=== PATIENT | female | born 1990 | race Caucasian/White ===

== ENCOUNTER 2021-11-22 11:37 | Emergency (ER) | payer BC, MEDICAID, SELFPAY ==
[2021-11-22 12:04] VITALS: BP 126/74; PULSE 105; RESP 18; TEMP 37.2; O2SAT 99; BMI 39.9
--- NOTE | 2021-11-22 13:18 | ED.GENADULT ---
HPI - General Adult General Time Seen by Provider: 13:19 Date Seen: 11/22/21 Chief complaint: Vaginal Bleeding Stated complaint: 6 1/2 weeks , bleeding Time Seen by Provider: 11/22/21 12:42 Source: patient and RN notes reviewed Mode of arrival: ambulatory Limitations: no limitations History of Present Illness HPI narrative: Patient is coming in with vaginal bleeding she is a little over 6 weeks by a dates. This morning she started spotting with wiping. She is not bleeding profusely the point that she is having any drainage and/or underwear. She did just go to the bathroom again on arrival and had a little bright red with wiping. She is having no pain, no abdominal pain, no cramping. This is her 3rd . She was told she had a subchorionic hemorrhage based on ultrasound with her 1st but never did have any bleeding. She has never had to have RhoGAM injection. She had her last baby here at [facility]. Related Data Home Medications Medication Instructions Recorded Confirmed escitalopram oxalate 20 mg tablet mg 11/22/21 Allergies Allergy/AdvReac Type Severity Reaction Status Date / Time ibuprofen Allergy Verified 11/22/21 12:07 Review of Systems Status of ROS: Reports: 6 or more systems reviewed and unremarkable except as noted in History and below Exam Const: Vital Signs, click to edit/add: Vital Signs - 24 hr 11/22/21 12:04 Temperature 98.9 F Pulse Rate [Right Pulse Oximeter] 105 H Respiratory Rate 18 Blood Pressure [Ri ght Upper Arm] 126/74 Pulse Oximetry 99 Oxygen Delivery Me thod Room Air Documenting provider has reviewed patient's vital signs: yes Common normals: no apparent distress, oriented x3, no limitations, healthy appearing, alert and well nourished General appearance: cooperative, comfortable and well kempt Nutritional appearance: obese HENMT: Common normals: normocephalic, head/scalp atraumatic and external ears normal Head and scalp: normocephalic and atraumatic External ear: external ears normal Eye: Common normals: PERRL, EOMs intact bilaterally, conjunctivae normal and no scleral icterus Conjunctiva: conjunctiva(e) normal Pupil: PERRL Neck & C-Spine: Common normals: full ROM, no lymphadenopathy, supple, no meningeal signs, no JVD and thyroid normal Thyroid: thyroid normal Resp: Common normals: normal respiratory effort, no retractions, no use of accessory muscles and clear to auscultation bilaterally Auscultation: clear to auscultation bilaterally Cardio: Common normals: no JVD, regular rate, regular rhythm, S1 normal heart sound, S2 normal heart sound, no gallops, no clicks and no murmurs Rate: regular rate Rhythm: regular rhythm Heart sounds: S1 normal and S2 normal GI: Common normals: Normal to inspection, nondistended, normoactive bowel sounds present, soft to palpation, non-tender, no hepatosplenomegaly, no masses and no bruits Palpation: soft and no hepatosplenomegaly Neuro: Common normals: oriented x3 Sensorium/orientation: alert Meningeal signs: no meningeal signs Psych: Appearance: well kempt Course Course Hospital Course: Reviewed causes of first-trimester bleeding with patient. She is not having any pelvic or abdominal pain, thus hopeful that this does not represent any ectopic . We will confirm her blood type, make sure she is not a candidate for RhoGAM, obtain of limited ultrasound as well as HCG/hemoglobin levels. She is currently hemodynamically stable, no evidence of any bleeding that require any emergent or surgical intervention. She will be monitored while here. Reevaluation(s) Reevaluation #1: Have reviewed the normal ultrasound findings, B positive blood type, stable hemoglobin and good level of hCG. She will need follow up in clinic. She is sure that this is vaginal. She states when they withdrew the Wand from the ultrasound there was some blood on it. She is not bleeding heavier. We recommended a period of observation and follow up with OB. Time: 15:44 Vital Signs Vital signs: Initial Vital Signs Temperature 98.9 F 11/22/21 12:04 Temperature Source Temporal Artery Scan 11/22/21 12:04 Pulse Rate 105 H 11/22/21 12:04 Respiratory Rate 18 11/22/21 12:04 Blood Pressure 126/74 11/22/21 12:04 Blood Pressure Mean 91 11/22/21 12:04 Blood Pressure Position Sitting 11/22/21 12:04 Pulse Oximetry 99 11/22/21 12:04 Oxygen Delivery Method 11/22/21 12:04 Vital Signs Temperature 98.9 F 11/22/21 12:04 Pulse Rate 105 H 11/22/21 12:04 Respiratory Rate 18 11/22/21 12:04 Blood Pressure 126/74 11/22/21 12:04 Pulse Oximetry 99 11/22/21 12:04 Oxygen Delivery Method 11/22/21 12:04 Temperature 98.9 F 11/22/21 12:04 Pulse Rate 105 H 11/22/21 12:04 Respiratory Rate 18 11/22/21 12:04 Blood Pressure 126/74 11/22/21 12:04 Pulse Oximetry 99 11/22/21 12:04 Oxygen Delivery Method 11/22/21 12:04 Medical Decision Making Lab Data Lab results reviewed: Yes I reviewed the patient's lab results Labs: Lab Results 11/22/21 11/22/21 11/22/21 Range/Units 13:40 13:40 13:40 WBC 5.42 (4.50-11.00) K/uL RBC 4.73 (4.00-5.20) m/uL Hgb 14.6 (12.0-16.0) gm/dL Hct 42.2 (33.0-51.0) % MCV 89 (80-100) fL MCH 31 (26-34) pg MCHC 35 (32-36) gm/dL RDW Coeff of Mick 12.5 (11.5-15.5) % Plt Count 256 (140-440) K/uL Neut % (Auto) 66.9 (42.0-72.0) % Lymph % (Auto) 24.4 (20-44) % [place]on % (Auto) 7.2 (0.0-11.0) % Eos % (Auto) 0.9 (0.0-7.0) % Baso % (Auto) 0.4 (0.0-3.0) % Neut # (Auto) 3.63 (1.7-7.0) K/uL Lymph # (Auto) 1.32 (0.90-2.90) K/uL [place]on # (Auto) 0.40 (0.00-0.90) K/UL Eos # (Auto) 0.05 (0.00-0.50) K/uL Baso # (Auto) 0.02 (0.00-0.30) K/uL Abs Immat Gran (auto) 0.01 (0.00-0.30) K/uL HCG, Quant 1748.70 mIU/mL Blood Type B Positive Imaging Data US - abdomen: Attestation: I have reviewed the pertinent imaging results. Radiologist's impression: Patient: FRANCISCO HASSAN Facility:?[facility] Patient ID:?[id number] Site Patient ID:?[id number]. Site :?1990 Study:?US OB Pelvis -11/22/2021 2:41:28 PM Ordering Physician:Te Young Final Report: Indication: Vaginal bleeding in the setting of an early 1st trimester . Technique: Sonography the pelvis was performed. The study was performed transabdominally and transvaginally. Doppler was also performed to assess heart rate Comparison: There are no prior studies this available for comparison. Findings: There is a single live intrauterine . The crown-rump length measures 5 millimeters corresponding to 6 weeks and 2 days. The estimated date of delivery based on this measurement is 07/16/2022. heart rate is 118 beats per minute which is normal for this early gestational age. The gestational sac size averages 7 millimeters. A yolk sac is difficult to ascertain. The ovaries are not discretely visualized due to bowel gas. A vague cystic structure in the left adnexa measuring 1.2 centimeters is probably an ovarian or a paraovarian cyst. No free fluid. No significant free fluid Impression: Single living intrauterine at 6 weeks and 2 days with an estimated date of delivery of 07/16/2022. No subchorionic hemorrhage or other visible complication. Dictated by Lewis Burton MD @ 11/22/2021 2:54:40 PM (Electronic Signature) Critical Care Time Critical Care Time Critical Care Time: No Discharge Plan Discharge Clinical Impression: First trimester bleeding Patient Disposition: Home, Self-Care Condition: Stable Instructions: Threatened Miscarriage (ED) Additional Instructions: Need to schedule a followup in Ob Gyne within the next 3 days if possible. Subsequent hCG level needs to be done hopefully in 48-72 hours. Complete pelvic rest until further evaluation done at your follow-up. If bleeding does increase with bleeding through a maxi pad an hour for 2 consecutive hours, bleeding heavy enough that you are becoming symptomatic feeling of lightheaded, dizzy, short of breath, elevated heart rate, do need to seek re-evaluation in the interim. Prescriptions: No Action escitalopram oxalate 20 mg tablet Label Comments: TAKE 1 TABLET BY MOUTH DAILY Stand Alone Forms: [employer] Info Instructions
--- NOTE | 2021-11-22 13:22 | CRLHL7_ITS ---
For Patients: As a result of the Cures Act, medical imaging exams and procedure reports are released immediately into your electronic medical record. You may view this report before your referring provider. If you have questions, please contact your health care provider. Indication: Vaginal bleeding in the setting of an early 1st trimester . Technique: Sonography the pelvis was performed. The study was performed transabdominally and transvaginally. Doppler was also performed to assess heart rate Comparison: There are no prior studies this available for comparison. Findings: There is a single live intrauterine . The crown-rump length measures 5 millimeters corresponding to 6 weeks and 2 days. The estimated date of delivery based on this measurement is 07/16/2022. heart rate is 118 beats per minute which is normal for this early gestational age. The gestational sac size averages 7 millimeters. A yolk sac is difficult to ascertain. The ovaries are not discretely visualized due to bowel gas. A vague cystic structure in the left adnexa measuring 1.2 centimeters is probably an ovarian or a paraovarian cyst. No free fluid. No significant free fluid Impression: Single living intrauterine at 6 weeks and 2 days with an estimated date of delivery of 07/16/2022. No subchorionic hemorrhage or other visible complication. Dictated by Lewis Burton MD @ 11/22/2021 2:54:40 PM (Electronically Signed)
[2021-11-22 13:53] LABS: Basophils Absolute Auto 0.02 K/uL (0.00-0.30); Basophils Percent Auto 0.4 % (0.0-3.0); Eosinophils Absolute Auto 0.05 K/uL (0.00-0.50); Eosinophils Percent Auto 0.9 % (0.0-7.0); Hematocrit 42.2 % (33.0-51.0); Hemoglobin* 14.6 gm/dL (12.0-16.0); Immature Granulocytes Abs Auto 0.01 K/uL (0.00-0.30); Lymphocytes Absolute Auto 1.32 K/uL (0.90-2.90); Lymphocytes Percent Auto 24.4 % (20-44); Mean Corpuscular HGB Conc 35 gm/dL (32-36); Mean Corpuscular Hemoglobin 31 pg (26-34); Mean Corpuscular Volume 89 fL (80-100); Monocytes Percent Auto 7.2 % (0.0-11.0); Neutrophils Absolute Auto 3.63 K/uL (1.7-7.0); Neutrophils Percent Auto 66.9 % (42.0-72.0); Platelet Count* 256 K/uL (140-440); RDW Coefficient of Variation % 12.5 % (11.5-15.5); Red Blood Count 4.73 m/uL (4.00-5.20); White Blood Count* 5.42 K/uL (4.50-11.00)
[2021-11-22 14:06] LABS: Slide Review Reflex No
== END 2021-11-22 16:05 | disposition home or self-care (01) ==
PROVIDERS: Emergency Provider Family Medicine
DX: O26.851 Spotting complicating pregnancy, first trimester (principal); Z3A.01 Less than 8 weeks gestation of pregnancy
CPT/HCPCS: 36415; 76817; 84702; 85025; 86900; 86901; 99284

== ENCOUNTER 2021-11-25 09:07 | Outpatient (CLI) | payer BC, MEDICAID, SELFPAY ==
[2021-11-25 14:04] LABS: HCG Quantitative* 219.77 mIU/mL
== END 2021-11-25 09:08 | disposition home or self-care (01) ==
LOC: NFLDREF 10:12
PROVIDERS: Visit Provider Obstetrics & Gynecology
DX: O20.9 Hemorrhage in early pregnancy, unspecified (principal)
CPT/HCPCS: 84702

== ENCOUNTER 2021-12-02 16:17 | Outpatient (CLI) | payer BC, SELFPAY ==
[2021-12-02 12:36] LABS: HCG Quantitative* 11.38 mIU/mL
== END 2021-12-02 16:18 | disposition home or self-care (01) ==
PROVIDERS: Visit Provider Advanced Practice Midwife
DX: O03.9 Complete or unspecified spontaneous abortion without complication (principal)
CPT/HCPCS: 84702

== ENCOUNTER 2021-12-10 08:40 | Outpatient (CLI) | payer BC, SELFPAY ==
--- OUTSIDE RECORDS SUMMARY | 2021-12-10 14:04 | XMS_ITS | Clinical Summary ---
:1990 Author Organization [employer] [facility] [place] [address] Care Team Providers Name Role Phone Pcp, No Primary Care Provider Unavailable Allergies Active Allergy Reactions Severity Noted Date Comments Ibuprofen Nausea And Vomiting 07/30/2014 Medications Medication Sig Dispensed Refills Start Date End Date Status VIT Take 1 Tab by 0 Act dat W-CA,FE,FA,<1 MG, mouth once daily. ( VITAMIN ORAL) pediatric multivit Take 1 tablet by 0 Active comb no.42 (CHILD'S mouth once daily. GUMMY VITAMIN-MINERAL) chew Active Problems Problem Noted Date Supervision of normal first 07/29/2014 Obesity (BMI 30-39.9) 07/29/2014 (normal spontaneous vaginal delivery) 07/29/2014 Second degree perineal laceration during delivery 07/11 Social History Tobacco Use Types Packs/Day Years Used Date Former Smoker Smokeless Tobacco: Never Used Alcohol Use Standard Drinks/Week Comments No 0 (1 standard drink = 0.6 oz pure alcoho l) Sex Assigned at Date Recorded Not on file Obstetrics History Para Term AB IAB SAB Ectopic Multiple Living Live Births 1 1 1 1 1 Date Outcome GA Total Labor/2nd/3rd Weight Sex Delivery Anes PTL Maria G A 1 A5 Name Clin Labor 07/29 Term 37w 3.18 kg M Vag Eli 9 9 3d (7 lb) ng LL,BB (ALFREDO ICA) Delivery Location: [facility] Last Filed Vital Signs Vital Sign Reading Time Taken Comments Blood Pressure 110/64 09/30/2015 4:20 PM CDT Pulse 116 09/30/2015 4:20 PM CDT Temperature 37.2 ??C (98.9 ??F) 09/30/2015 4:20 PM CDT Respiratory Rate 16 07/31/2014 9:00 AM CDT Oxygen Saturation 98% 09/30/2015 4:20 PM CDT Inhaled Oxygen Concentration - - Weight 112 kg (247 lb) 09/30/2015 4:20 PM CDT Height 168.9 cm (5' 6.5) 04/15/2015 4:11 PM INSPECTOR PRECISION ASSEMBLY Body Mass Index 39.27 04/15/2015 4:11 PM INSPECTOR PRECISION ASSEMBLY Plan of Treatment Health Maintenance Due Date Last Done Comments COVID-19 vaccine series (#1) 1990 Tdap 2001 Depression screening for age 12+ 2002 Hepatitis C screening for age 18-79 2008 Tetanus booster 2010 BMI (ht and wt on same day) for age 18+ 04/15/2016 04/15/19 16 Pap test for age 21-65 06/05/2021 06/05/2018 Influenza for age 9-49 11/11/2021 Results Not on filefrom Last 3 Months Insurance Payer Benefit Plan / Subscriber ID Effective Dates Phone Addre ss Type Group [employer] [id number] 2014-Present [address] [place] [address] Advance Directives Latest Code Status on File Code Status Date Activated Date Inactivated Comments Full Code 07/29/2014 11:20 PM 07/31/2014 2:18 PM Full Code 07/29/2014 7:31 AM 07/29/2014 11:20 PM Full Code 07/29/2014 7:30 AM 07/29/2014 7:31 AM Full Code 07/29/2014 7:11 AM 07/29/2014 7:25 AM Full Code 07/29/2014 6:25 AM 07/29/2014 7:11 AM Care Teams Wood Turning Lathe Operator Relationship Specialty Start Date End Date Pcp, No PCP - General 07/29/14 .
[2021-12-10 15:14] LABS: HCG Quantitative* < 2.39 mIU/mL
== END 2021-12-10 08:41 | disposition home or self-care (01) ==
LOC: NFLDREF 13:35
PROVIDERS: Visit Provider Advanced Practice Midwife
DX: O03.9 Complete or unspecified spontaneous abortion without complication (principal)
CPT/HCPCS: 84702

== ENCOUNTER 2022-01-31 07:56 | Outpatient (CLI) | payer BC, SELFPAY ==
--- OUTSIDE RECORDS SUMMARY | 2022-01-31 08:00 | XMS_ITS | Clinical Summary ---
:1990 Author Organization [employer] [facility] [place] [address] Care Team Providers Name Role Phone Pcp, [...] lb) ng LL,BB (ALFREDO ICA) Delivery Location: [facility] Last Filed Vital Signs Vital Sign [...] 168.9 cm (5' 6.5) 04/15/2015 4:11 PM SALES SUPPORT COORDINATOR Body Mass Index 39.27 04/15/2015 4:11 PM SALES SUPPORT COORDINATOR Plan of Treatment Health Maintenance Due Date [...] Phone Addre ss Type Group [employer] [id number] 2014-Present [address] [place] [address] Advance Directives Latest Code Status on File Code Status Date Activated Date Inactivated Comments Full Code 07/29/2014 11:20 PM 07/31/2014 2:18 PM Full Code 07/29/2014 7:31 AM 07/29/2014 11:20 PM Full Code 07/29/2014 7:30 AM 07/29/2014 7:31 AM Full Code 07/29/2014 7:11 AM 07/29/2014 7:25 AM Full Code 07/29/2014 6:25 AM 07/29/2014 7:11 AM Care Teams Experimental Outboard Motors Mechanic Relationship Specialty Start Date End Date Pcp, No PCP - General 07/29/14 .
--- NOTE | 2022-01-31 08:15 | CRLHL7_ITS ---
For Patients: As a result of the Century Cures Act, medical imaging exams and procedure reports are released immediately into your electronic medical record. You may view this report before your referring provider. If you have questions, please contact your health care provider. INDICATION: First trimester scan, establish dates. COMPARISON: None. TECHNIQUE: Real-time anne-scale imaging of the pelvis was performed. FINDINGS: Sonographic imaging demonstrates a twin dichorionic/diamniotic living intrauterine gestation. TWIN A: The embryo demonstrates a regular cardiac rate measuring 174 beats per minute. The embryo`s crown-rump length measurement of 2.2 cm corresponds to a gestational age of 8 weeks 6 days with a sonographic due date of 09/06/2022. There is a normal-appearing yolk sac. There are no gross abnormalities noted within the embryo at this early state of development. The gestational sac has a normal appearance. The amount of fluid within the sac appears appropriate for gestational age. TWIN B: The embryo demonstrates a regular cardiac rate measuring 176 beats per minute. The embryo`s crown-rump length measurement of 2.7 cm corresponds to a gestational age of 9 weeks 3 days with a sonographic due date of 09/02/2022. There is a normal-appearing yolk sac. There are no gross abnormalities noted within the embryo at this early state of development. The gestational sac has a normal appearance. The amount of fluid within the sac appears appropriate for gestational age. The cervix is closed. The myometrium appears normal. The left ovary is normal. The right ovary is not visualized. A small subchorionic hemorrhage is present inferiorly measuring 7 x 6 x 18 millimeters. There are no suspicious fluid collections noted in the cul-de-sac. IMPRESSION: TWIN A: Gestational age calculated at 8 weeks 6 days with a sonographic due date of 09/06/2022. TWIN B: Gestational age calculated at 9 weeks 3 days with a sonographic due date of 09/02/2022. Dictated by Michel Ospina MD @ 01/31/2022 11:06:52 AM (Electronically Signed)
== END 2022-01-31 07:57 | disposition home or self-care (01) ==
LOC: US 07:59
PROVIDERS: PCP Family Medicine; Visit Provider Advanced Practice Midwife
DX: O30.041 Twin pregnancy, dichorionic/diamniotic, first trimester (principal); Z3A.09 9 weeks gestation of pregnancy
CPT/HCPCS: 76817; 84443; 86703; 86803; 86850; 86900; 86901; 87086; 87340

== ENCOUNTER 2022-01-31 09:21 | Outpatient (CLI) | payer BC, SELFPAY ==
--- OUTSIDE RECORDS SUMMARY | 2022-01-31 09:26 | XMS_ITS | Clinical Summary ---
:1990 Author Organization [employer] [facility] [place] [address] Care Team Providers Name Role Phone Pcp, [...] lb) ng LL,BB (ALFREDO ICA) Delivery Location: [facility] Last Filed Vital Signs Vital Sign [...] 168.9 cm (5' 6.5) 04/15/2015 4:11 PM TELEMARKETING SALES REPRESENTATIVE Body Mass Index 39.27 04/15/2015 4:11 PM TELEMARKETING SALES REPRESENTATIVE Plan of Treatment Health Maintenance Due Date [...] Phone Addre ss Type Group [employer] [id number] 2014-Present [address] [place] [address] Advance Directives Latest Code Status on File Code Status Date Activated Date Inactivated Comments Full Code 07/29/2014 11:20 PM 07/31/2014 2:18 PM Full Code 07/29/2014 7:31 AM 07/29/2014 11:20 PM Full Code 07/29/2014 7:30 AM 07/29/2014 7:31 AM Full Code 07/29/2014 7:11 AM 07/29/2014 7:25 AM Full Code 07/29/2014 6:25 AM 07/29/2014 7:11 AM Care Teams Hands Assembler Relationship Specialty Start Date End Date Pcp, No PCP - General 07/29/14 .
[2022-01-31 13:15] LABS: HIV 1/2/P24 Combo Screen* Negative (Negative)
[2022-01-31 13:42] LABS: Hepatitis B Surface Antigen* Negative (Negative)
[2022-01-31 13:59] LABS: Hepatitis C Virus Antibody* Negative (Negative)
[2022-02-01 15:34] LABS: Rapid Plasma Reagin (RPR) Non Reactive (Non Reactive)
[2022-02-02 00:56] LABS: Rubella Antibody IgG 79.5 IU/mL
== END 2022-01-31 09:22 | disposition home or self-care (01) ==
PROVIDERS: PCP Family Medicine; Visit Provider Advanced Practice Midwife
DX: Z34.90 Encounter for supervision of normal pregnancy, unspecified, unspecified trimester (principal)
CPT/HCPCS: 84443; 86592; 86703; 86762; 86787; 86803; 86850; 86900; 86901; 87086; 87340; 87491; 87591

== ENCOUNTER 2022-02-14 07:09 | Outpatient (CLI) | payer BC, SELFPAY ==
--- NOTE | 2022-02-14 07:15 | CRLHL7_ITS ---
For Patients: As a result of the Cures Act, medical imaging exams and procedure reports are released immediately into your electronic medical record. You may view this report before your referring provider. If you have questions, please contact your health care provider. INDICATION: Twin first-trimester . Subchorionic hemorrhage. TECHNIQUE: Ultrasound OB pelvis transabdominal. Real-time anne-scale imaging of the pelvis was performed. COMPARISON: 01/31/2022 FINDINGS: Sonographic imaging demonstrates a twin intrauterine gestation. Fetus A does not demonstrate heart activity on today`s exam. The embryo`s crown rump length measurement of 1.9 cm corresponds to a gestational age of 8 weeks 3 days with a sonographic due date of March 26, 2022. Fetus B demonstrates a regular cardiac rate measuring 163 beats per minute. The embryo`s crown rump length measurement of 5.3 cm corresponds to a gestational age of 12 weeks 0 days with a sonographic due date of August 29, 2022. There are no gross abnormalities noted within the embryos at this early state of development. The placenta has not yet developed. There is no sign of perigestational hemorrhage. The ovaries are of normal size. There are no suspicious fluid collections noted in the cul-de-sac. IMPRESSION: Again demonstrated is a twin intrauterine . There is no heart activity in fetus A on today`s exam consistent with demise. Fetus B is viable with a normal heart rate. No other abnormality evident. No sign of hemorrhage on today`s exam. Dictated by Jonathon Foreman MD @ 02/14/2022 8:25:44 AM (Electronically Signed)
--- OUTSIDE RECORDS SUMMARY | 2022-02-14 08:01 | XMS_ITS | Clinical Summary ---
:1990 Author Organization [employer] [facility] [place] [address] Care Team Providers Name Role Phone Pcp, [...] lb) ng LL,BB (ALFREDO ICA) Delivery Location: [facility] Last Filed Vital Signs Vital [...] 168.9 cm (5' 6.5) 04/15/2015 4:11 PM MARKET RESEARCH CONSULTANT Body Mass Index 39.27 04/15/2015 4:11 PM MARKET RESEARCH CONSULTANT Plan of Treatment Health Maintenance Due Date Last Done Comments COVID-19 vaccine series (#1) 1990 Tdap 2001 Depression screening for age 12+ 2002 HIV for age 15-65 2005 Hepatitis C screening for age 18-79 2008 Tetanus booster 2010 BMI (ht and wt on same day) for age 18+ 04/15/2016 04/15/19 16 Pap test for age 21-65 06/05/2021 06/05/2018 Influenza for age 9-49 11/11/2021 Results Not on filefrom Last 3 Months Insurance Payer Benefit Plan / Subscriber ID Effective Dates Phone Addre ss Type Group [employer] [id number] 2014-Present [address] [place] [address] Advance Directives Latest Code Status on File Code Status Date Activated Date Inactivated Comments Full Code 07/29/2014 11:20 PM 07/31/2014 2:18 PM Full Code 07/29/2014 7:31 AM 07/29/2014 11:20 PM Full Code 07/29/2014 7:30 AM 07/29/2014 7:31 AM Full Code 07/29/2014 7:11 AM 07/29/2014 7:25 AM Full Code 07/29/2014 6:25 AM 07/29/2014 7:11 AM Care Teams Quality And Reliability Engineer Relationship Specialty Start Date End Date Pcp, No PCP - General 07/29/14 .
== END 2022-02-14 07:10 | disposition home or self-care (01) ==
LOC: US 07:09
PROVIDERS: PCP Family Medicine; Visit Provider Advanced Practice Midwife
DX: O30.001 Twin pregnancy, unspecified number of placenta and unspecified number of amniotic sacs, first trimester (principal); O31.8X Other complications specific to multiple gestation; Z3A.12 12 weeks gestation of pregnancy
CPT/HCPCS: 76816

== ENCOUNTER 2022-02-22 07:58 | Outpatient (CLI) | payer BC, SELFPAY ==
--- OUTSIDE RECORDS SUMMARY | 2022-02-22 08:01 | XMS_ITS | Clinical Summary ---
:1990 Author Organization [employer] [facility] [place] [address] Care Team Providers Name Role Phone Pcp, [...] Tobacco Use Types Packs/Day Years Used Date Smoking Tobacco: Former Smokeless Tobacco: Never Alcohol Use Standard Drinks/Week Comments No 0 [...] lb) ng LL,BB (ALFREDO ICA) Delivery Location: [facility] Last Filed Vital Signs [...] cm (5' 6.5) 04/15/2015 4:11 PM INSPECTOR EXHAUST EMISSIONS Body Mass Index 39.27 04/15/2015 4:11 PM INSPECTOR EXHAUST EMISSIONS Plan of Treatment Health Maintenance Due Date [...] Addre ss Type Group [employer] [id number] 2014-Present [address] [place] [address] Advance Directives Latest Code Status on File Code Status Date Activated Date Inactivated Comments Full Code 07/29/2014 11:20 PM 07/31/2014 2:18 PM Code Status History Code Status Date Activated Date Inactivated Comments Full Code 07/29/2014 7:31 AM 07/29/2014 11:20 PM Full Code 07/29/2014 7:30 AM 07/29/2014 7:31 AM Full Code 07/29/2014 7:11 AM 07/29/2014 7:25 AM Full Code 07/29/2014 6:25 AM 07/29/2014 7:11 AM Care Teams Eyeglass Lens Cutter Relationship Specialty Start Date End Date Pcp, No PCP - General 07/29/14 .
--- NOTE | 2022-02-22 08:15 | CRLHL7_ITS ---
For Patients: As a result of the Century Cures Act, medical imaging exams and procedure reports are released immediately into your electronic medical record. You may view this report before your referring provider. If you have questions, please contact your health care provider. CLINICAL HISTORY: First trimester screening. TECHNIQUE: Real time anne scale imaging of the fetus was performed using a transabdominal approach. FINDINGS: Sonographic imaging demonstrates a single living intrauterine gestation (i.e., living twin B). The fetus demonstrates a regular cardiac rate measuring 154 beats per minute. The crown rump length measurement of 7.1 cm corresponds to a gestation of 13 weeks 2 days with a sonographic gestational age of 0608/28/2022. A nuchal translucency measurement of 1.7 mm was obtained for screening purposes. Nonviable twin A (di-di) pole again noted. IMPRESSION: Nuchal translucency measurement obtained for living Twin B. No labs performed per request. Dictated by Michel Ospina MD @ 02/22/2022 10:51:52 AM (Electronically Signed)
== END 2022-02-22 07:59 | disposition home or self-care (01) ==
PROVIDERS: PCP Family Medicine; Visit Provider Obstetrics & Gynecology
DX: Z34.91 Encounter for supervision of normal pregnancy, unspecified, first trimester (principal); O30.041 Twin pregnancy, dichorionic/diamniotic, first trimester; Z3A.13 13 weeks gestation of pregnancy
CPT/HCPCS: 36415; 76801; 76802; 76813; 76816; 84163; 84702

== ENCOUNTER 2022-04-20 12:35 | Outpatient (CLI) | payer BC, MEDICAID, SELFPAY | END 2022-04-20 12:36 | disposition home or self-care (01) | LOC: US 12:37 | PROVIDERS: PCP Family Medicine; Visit Provider Pediatrics Neonatal-Perinatal Medicine | DX: O30.042 Twin pregnancy, dichorionic/diamniotic, second trimester (principal); Z3A.20 20 weeks gestation of pregnancy | CPT/HCPCS: 76811 ==

== ENCOUNTER 2022-05-13 13:19 | Outpatient (CLI) | payer BC, MEDICAID, SELFPAY | END 2022-05-13 13:20 | disposition home or self-care (01) | LOC: NFLDREF 13:20 | PROVIDERS: PCP Family Medicine; Visit Provider Obstetrics & Gynecology | DX: Z34.92 Encounter for supervision of normal pregnancy, unspecified, second trimester (principal); Z3A.24 24 weeks gestation of pregnancy | CPT/HCPCS: 87086 ==

== ENCOUNTER 2022-06-10 09:58 | Outpatient (CLI) | payer BC, MEDICAID, SELFPAY | END 2022-06-10 09:59 | disposition home or self-care (01) | LOC: NFLDREF 06-13 07:21 | PROVIDERS: PCP Family Medicine; Visit Provider Obstetrics & Gynecology | DX: Z34.93 Encounter for supervision of normal pregnancy, unspecified, third trimester (principal); Z3A.28 28 weeks gestation of pregnancy | CPT/HCPCS: 86592 ==

== ENCOUNTER 2022-07-08 09:07 | Outpatient (CLI) | payer BC, MEDICAID, SELFPAY ==
--- NOTE | 2022-07-08 09:15 | CRLHL7_ITS ---
For Patients: As a result of the Century Cures Act, medical imaging exams and procedure reports are released immediately into your electronic medical record. You may view this report before your referring provider. If you have questions, please contact your health care provider. INDICATION: 32 year-old female. Evaluate growth. TECHNIQUE: Transabdominal obstetrical ultrasound. COMPARISON: April 20, 2022. FINDINGS: Single living intrauterine in transverse presentation. Posterior placenta. No placenta previa. heart rate 159 beats per minute. Normal amniotic fluid. Single deepest pocket measurement 5.1 cm. Biparietal diameter 7.7 cm, 30 weeks 6 days, 11th percentile. Head circumference 29.9 cm, 33 weeks 1 day, 42nd percentile. Abdominal circumference 30.0 cm, 34 weeks 0 days, 93rd percentile. Femur length 6.4 cm, 33 weeks 0 days, 66 percentile. Composite calculated ultrasound age 32 weeks 5 days with a sonographic due date of August 28, 2022. Appropriate growth and maturation in the interval. Estimated weight 2166 g which lies at the 81st percentile. The head to abdominal circumference ratio is normal at 1.0 (0.96-1.12). IMPRESSION: Single living intrauterine in transverse presentation. Composite calculated ultrasound age 32 weeks 5 days with a sonographic due date of August 28, 2022. Appropriate growth and maturation in the interval. Estimated weight lies at the 81st percentile. Dictated by Manuelito Qiu MD @ 07/08/2022 10:17:00 AM (Electronically Signed)
== END 2022-07-08 09:08 | disposition home or self-care (01) ==
LOC: US 09:08
PROVIDERS: PCP Family Medicine; Visit Provider Advanced Practice Midwife
DX: Z34.93 Encounter for supervision of normal pregnancy, unspecified, third trimester (principal); Z3A.32 32 weeks gestation of pregnancy
CPT/HCPCS: 76816

== ENCOUNTER 2022-07-11 10:53 | Outpatient (CLI) | payer BC, SELFPAY ==
[2022-07-11 11:04] VITALS: PULSE 107; O2SAT 97
[2022-07-11 11:19] VITALS: BP 92/55; PULSE 106
[2022-07-11 12:10] LABS: Amnisure Rom* Negative
[2022-07-11 12:13] VITALS: BP 86/60; PULSE 100
[2022-07-11 12:15] VITALS: BP 93/55; PULSE 103
--- NOTE | 2022-07-11 15:12 | PC.OBNST ---
NST Note NST Note Start: 07/11/22 11:06 Freq: ONCE Status: Active Protocol: Document 07/11/22 15:09 MMB (Rec: 07/11/22 15:12 MMB [id number]) NST Note 4 Para (# of births) 2 EDC 09/02/22 Gestational Age In Weeks & Days 32 Weeks & 3 Days Patient Presented with Complaint(s) of Leaking fluid,Observation after an injury If Observation after an injury, describe fall in parking lot on right hip/buttock Reactive Yes Appropriate for Gestational Age Yes RN Elfego Watkins N Date 07/11/22 Reactive Yes Appropriate for Gestational Age Yes BRANDY Mejia RN Date 07/11/22 OB NST charge Yes Complete NST Note via Write Note Yes The provider's electronic signature indicates the NST is reactive/appropriate for gestational age. *Note to provider: If an addendum is required, open the patient's chart and click on the note under the Nurse/Allied Health tab.
== END 2022-07-11 15:02 | disposition home or self-care (01) ==
LOC: OB OUT 10:54 → OB 10:54
PROVIDERS: PCP Family Medicine; Visit Provider Obstetrics & Gynecology
DX: O47.03 False labor before 37 completed weeks of gestation, third trimester (principal); Z3A.32 32 weeks gestation of pregnancy
CPT/HCPCS: 59025; 84112; 99213

== ENCOUNTER 2022-07-21 13:45 | Outpatient (CLI) | payer BC, SELFPAY ==
--- NOTE | 2022-07-21 14:00 | CRLHL7_ITS ---
For Patients: As a result of the Century Cures Act, medical imaging exams and procedure reports are released immediately into your electronic medical record. You may view this report before your referring provider. If you have questions, please contact your health care provider. INDICATION: BMI COMPARISON: 07/08/2022 TECHNIQUE: Real time anne scale imaging of the fetus was performed. Without non-stress testing. FINDINGS: Sonographic imaging demonstrates a single living intrauterine gestation. Fetus demonstrates a regular cardiac rate of 125 beats per minute. Fetus has a breech position. The amniotic fluid volume appears normal and there is a single deepest pocket measurement of 5.0 cm. The fetus was active and demonstrated normal breathing movements. There was normal flexion and extension of the trunk and extremities. IMPRESSION: Normal biophysical profile score of 8 out of 8. Dictated by Michel Ospina MD @ 07/21/2022 2:49:13 PM (Electronically Signed)
== END 2022-07-21 13:46 | disposition home or self-care (01) ==
LOC: US 13:45
PROVIDERS: PCP Family Medicine; Visit Provider Advanced Practice Midwife
DX: Z34.93 Encounter for supervision of normal pregnancy, unspecified, third trimester (principal)
CPT/HCPCS: 76819

== ENCOUNTER 2022-08-19 13:24 | Outpatient (CLI) | payer BC, SELFPAY ==
--- NOTE | 2022-08-19 13:00 | CRLHL7_ITS ---
For Patients: As a result of the Century Cures Act, medical imaging exams and procedure reports are released immediately into your electronic medical record. You may view this report before your referring provider. If you have questions, please contact your health care provider. INDICATION: MEASURING LARGE FOR DATES COMPARISON: 08/05/2022 TECHNIQUE: Real time anne scale imaging of the fetus was performed. FINDINGS: Sonographic imaging demonstrates a single living intrauterine gestation. Fetus demonstrates a regular cardiac rate of 150 beats per minute. Fetus has a vertex position. The placenta lies posteriorly. Amniotic fluid volume appears normal and there is a single deepest vertical pocket: 6.7 cm. The estimated weight is 3935gm which lies at the 96th %. On the prior OB ultrasound exam dated 07/08/2022 the estimated weight was at the 81st%. BPD 64th percentile. HC 82nd percentile. AC greater than 97th percentile. FL 50th percentile. The HC/AC ratio measures 0.93 range (0.88-1.05). Normal gross body movements, tone and respiratory activity. IMPRESSION: Normal biophysical profile 10/18. Sonographic gestational age 39 weeks 2 days and sonographic due date 08/24/2022. Sonographic age 9 days ahead of the clinical age. Estimated weight 96th percentile. Abdominal circumference greater than 97th percentile. Dictated by Michel Ospina MD @ 08/20/2022 6:10:43 AM (Electronically Signed)
== END 2022-08-19 13:25 | disposition home or self-care (01) ==
LOC: US 13:25
PROVIDERS: PCP Family Medicine; Visit Provider Advanced Practice Midwife
DX: O36.63X0 Maternal care for excessive fetal growth, third trimester, not applicable or unspecified (principal); Z3A.39 39 weeks gestation of pregnancy
CPT/HCPCS: 76816; 76819

== ENCOUNTER 2022-08-31 17:47 | Outpatient (CLI) | payer BC, SELFPAY ==
[2022-08-31 17:59] VITALS: PULSE 105; O2SAT 100
[2022-08-31 18:10] VITALS: BP 93/57; PULSE 100
[2022-08-31 18:18] VITALS: TEMP 36.6
[2022-08-31 18:45] LABS: Amnisure Rom* Negative
--- NOTE | 2022-08-31 19:34 | PC.OBNST ---
NST Note NST Note Start: 08/31/22 18:02 Freq: ONCE Status: Discharge Protocol: Document 08/31/22 19:33 MMB (Rec: 08/31/22 19:34 MMB [id number]) NST Note 4 Para (# of births) 2 EDC 09/02/22 Gestational Age In Weeks & Days 39 Weeks & 5 Days Patient Presented with Complaint(s) of Leaking fluid Reactive Yes Appropriate for Gestational Age Yes RN Steve Monsalve RN Date 08/31/22 Reactive Yes Appropriate for Gestational Age Yes BRANDY Watkins RN Date 08/31/22 OB NST charge Yes Complete NST Note via Write Note Yes The provider's electronic signature indicates the NST is reactive/appropriate for gestational age. *Note to provider: If an addendum is required, open the patient's chart and click on the note under the Nurse/Allied Health tab.
== END 2022-08-31 19:00 | disposition home or self-care (01) ==
LOC: OB OUT 17:47 → OB 17:49
PROVIDERS: PCP Family Medicine; Visit Provider Advanced Practice Midwife
DX: O47.1 False labor at or after 37 completed weeks of gestation (principal); Z3A.39 39 weeks gestation of pregnancy
CPT/HCPCS: 59025; 84112; 99213

== ENCOUNTER 2022-09-03 14:58 | Inpatient (IN) | payer BC, SELFPAY ==
[2022-09-03] VITALS (72 sets, daily range): BP systolic 74–149; BP diastolic 6–94; PULSE 73–141; TEMP 36.7–37.2; O2SAT 92–100; BMI 45.8
[2022-09-03 16:20] LABS: Basophils Absolute Auto 0.03 K/uL (0.00-0.30); Basophils Percent Auto 0.3 % (0.0-3.0); Eosinophils Absolute Auto 0.02 K/uL (0.00-0.50); Eosinophils Percent Auto 0.2 % (0.0-7.0); Hematocrit 37.4 % (33.0-51.0); Hemoglobin* 12.9 gm/dL (12.0-16.0); Immature Granulocytes Abs Auto 0.06 K/uL (0.00-0.30); Immature Granulocytes Pct Auto 0.6 %; Lymphocytes Percent Auto 14.7 % (20-44); Mean Corpuscular HGB Conc 35 gm/dL (32-36); Mean Corpuscular Hemoglobin 31 pg (26-34); Mean Corpuscular Volume 91 fL (80-100); Monocytes Percent Auto 7.2 % (0.0-11.0); Platelet Count* 240 K/uL (140-440); RDW Coefficient of Variation % 13.6 % (11.5-15.5); Red Blood Count 4.11 m/uL (4.00-5.20); White Blood Count* 10.73 K/uL (4.50-11.00)
[2022-09-03 16:23] LABS: Slide Review Reflex No
[2022-09-03] MEDS: LACTATED RINGERS 1000 ML 1,000 ML 1200 ML IV ×3 (16:25→18:30)
--- NOTE | 2022-09-03 16:48 | P.LDBA_ITS ---
Subjective History of Present Illness Date Seen: 09/03/22 Narrative: Patient is being admitted to Labor and Delivery for elective IOL. She is a 32 year old at 40.1 weeks gestation. Her full history and physical was dictated by Adrian Lara CNM on 08/12/22. Please see this for details. She was given the option for an IOL of AROM or IV pitocin. Risks and benefits of each discussed. She would like to proceed wit AROM and is ok with pitocin to follow if needed. She was 5-6/70/-2 on initial exam. When AROM was performed 15-20 minutes later she was found to be 6/90/-2. Head was well applied to the cervix before and after, baby tolerated it well, and a large amount of meconium stained amniotic fluid came out. 1. Anxiety/Depression FAWN 20/PHQ-9 12 at NOB. Was on Escitalopram before, stopped prior to . Declines medication at this time. May consider therapy. 03/18/21: PHQ 12, FAWN 13.? Continues to decline medication, will consider later in the .? Therapy referral placed 05/13/22: PHQ 6, FAWN 13. Declined medication trial. 07/21 agreed to start lexapro, on 5mg 2. BMI >40 at NOB HgbA1c: 4.8 TSH 1.1 Referral to Anesthesia. Order placed. Referral to nutrition. Level II Anatomy US Early GCT screenin Repeat GCT screenin Growth scan at 32 weeks: EFW 81% surveillance: Weekly BPP or NST starting at 34w 3. Originally di/Di Twins, with demise of co-twin A diagnosed at 11 weeks.? Baby A CRL 2.2 cm, measuring 8w 6d, Baby B CRL 2.7, measuring 9w 3d on 01/31/22 Per MFM,? SCOUT of larger embryo to be used for dating.? SCOUT 09/02/21 by US for Twin B, surviving and larger twin. Refer to genetics placed to discuss genetic testing options.? NT only ordered here -elected not to pursue further genetic screening ? 4. Previous miscarriage 11/23/2021 5. 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 EBL with 1st unknown. EBL 800, pit, methergine, cytotec given TXA before delivery, AMTSL after delivery of baby.? 6.? Breech baby at 34 weeks. RESOLVED, recommend US on admission to confirm position -Has BPP at 36 weeks 7. Measuring large for dates Growth added to 38 week US (08/19/2022): 96%ile (3935g) OB - Problem Based A/P Additional Plan (1) Encounter for induction of labor: Status: Acute (2) Large for dates affecting management of mother: Status: Acute (3) Dichorionic diamniotic twin gestation: Problem details: Demise of 1 twin Status: Resolved (4) Embryonic demise: Status: Acute (5) BMI 40.0-44.9, adult: Status: Acute (6) History of hemorrhage: Status: Acute Plan ASSESSMENT: at 40.1 weeks gestation? GBS negative? complicated?by BMI >40, suspected macrosomia, history of PPH, and loss of twin A at 11 weeks gestation. Elective IOL? ?? PLAN:? 1. Reviewed risks and benefits of IOL with pitocin vs AROM. Pt prefers AROM. Pitocin to follow if needed.? 2. Candidate for analgesia of choice. Planning epidural. Can receive one when she desires.? 3. Anticipate ? 4. AROM followed by expectant management.? 5. IV in place for history of PPH and planning epidural. 6. Continuous monitoring. 7. Plan for pitocin immediately after delivery of baby.? 8. Plan for aircraft design engineer presence for delivery due to meconium stained amniotic fluid. ? Delivery/Labor/Induction Plan Plan: induction Induction method: AROM OB Result Labs Blood Type: B (+) positive GBS Status: negative OB Exam Physical Exam Vital signs: Pulse BP Pulse Ox 127 H 149/85 H 100 09/03/22 16:48 09/03/22 16:48 09/03/22 16:45 Narrative: Psychiatric:? Alert and oriented x3? HEENT:? Normocephalic, atraumatic? Lungs:? Clear to auscultation bilaterally? Heart:? Regular rate and rhythm, no murmur, rub or gallop? Abdomen:? Soft between contractions, nontender, and gravid? Extremities:? No edema or erythema? Detailed Labor and Delivery Exam Patient Gravid: Yes Dilation (cm): 5 (5-6) Effacement (%): 70 Cervix position: mid Consistency: soft Contraction Frequency: 1-3 Tachysystole: No Contraction intensity: Moderate Fetus (Single) Station: -2 Amniotic Membrane Status: AROM Amniotic Membrane Fluid Description: Meconium Stained and Brown Heart Rate Baseline: 135 Monitor Accelerations: Present Monitor Decelerations: None Alf Variability: Moderate (6-25)
[2022-09-03] MEDS: LIDOCAINE 2% (PF) 5 ML VIAL EPIDURAL (16:51)
[2022-09-03] MEDS: ROPIVACAINE 0.2% 100 ml 100 ML 12 MG EPIDURAL (16:57)
[2022-09-03] MEDS: PHENYLEPHRINE 100 MCG/ML SYRINGE IVP ×6 (17:13→18:58)
[2022-09-03] MEDS: fentaNYL 100 MCG/2 ML inj EPIDURAL (17:23)
--- NOTE | 2022-09-03 17:24 | P.ANBPRC_ITS ---
PFSH PFS Medical History Depression ?F32.A - Depression, unspecified (ICD-10) Anxiety ?F41.9 - Anxiety disorder, unspecified (ICD-10) History of vaginal delivery (07/29/14) Surgical History History of root canal procedure ?Z98.890 - Other specified postprocedural states (ICD-10) History of laparoscopic cholecystectomy (08/03/21) ?Z90.49 - Acquired absence of other specified parts of digestive tract (ICD- 10) History of third molar tooth extraction ?K08.409 - Partial loss of teeth, unspecified cause, unspecified class (ICD- 10) Family History Father High blood pressure Heart disease Mother Low blood pressure Social History Narrative: SOCIAL Education: Some 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 Drug Use: Denies past/present Chicken Pox: Yes as a child MRSA: Denies What is your current living situation: I presently have a place to live Problems where you live: no known problems In the past 12 months, utilities in danger of being shut off: no In the past 12 mos, have been you worried that your food would run out before you had money to buy more?: never true In the past 12 mos, the food you bought just didn't last and you didn't have money to buy more?: never true Smoking Status: Never smoker How often does anyone, including family, friends and others, physically hurt you : How often does anyone, including family, friends and others, insult or talk down to you: How often does anyone, including family, friends and others, threaten you with harm: How often does anyone, including family, friends and others, scream or curse at you: Little interest or pleasure in doing things: not at all Feeling down, depressed, or hopeless: not at all Meds Home Medications and Allergies Home Medications Medication Instructions Recorded Confirmed Type prenat.vits,bacilio,[id number] 1 tab PO QDAY 02/14/22 09/03/22 History pyridoxine (vitamin B6) 25 mg 25 mg PO ONCE 02/14/22 09/03/22 History tablet cholecalciferol (vitamin D3) 50 4,000 unit PO QDAY 03/18/22 09/03/22 History mcg (2,000 unit) tablet folic acid 1 mg tablet 1 mg PO QDAY 03/18/22 09/03/22 History Allergies Allergy/AdvReac Type Severity Reaction Status Date / Time ibuprofen Allergy Unknown Vomiting Verified 09/03/22 15:23 Results Labs Labs: Laboratory Results - last 24 hr 09/03/22 16:15 WBC 10.73 RBC 4.11 Hgb 12.9 Hct 37.4 MCV 91 MCH 31 MCHC 35 RDW Coeff of Mick 13.6 Plt Count 240 Neut % (Auto) 77.0 H Lymph % (Auto) 14.7 L [place] % (Auto) 7.2 Eos % (Auto) 0.2 Baso % (Auto) 0.3 Neut # (Auto) 8.30 H Lymph # (Auto) 1.60 [place] # (Auto) 0.80 Eos # (Auto) 0.02 Baso # (Auto) 0.03 Vital Signs Vital Signs: Last Vital Signs Pulse 120 H 09/03/22 17:18 BP 101/52 L 09/03/22 17:18 Pulse Ox 100 09/03/22 17:23 Weight: 126.87 kg Height: 166.37 cm Anesthesia Procedures Epidural Insertion Patient Location: OB Start Time: 16:20 Stop Time: 17:20 Start Date: 09/03/22 Stop Date: 09/03/22 Reason for Block: procedure for pain Patient Position: sitting Performed By: Louisa Rossi Preanesthetic Checklist: IV checked, risks and benefits discussed, monitors and equipment checked, pre-op evaluation, timeout performed and anesthesia consent Prep: chlorhexidine gluconate Monitoring: blood pressure monitoring, continuous pulse oximetry and heart rate Approach: midline Vertebral Space: lumbar (1-5) Epidural Technique: KENNEY saline Needle Type: Tuohy needle Injection Technique: continuous catheter (continuous catheter) Needle gauge: 17 Needle Length (cm): 10 cm Needle Insertion Depth (cm): 8 Catheter Gauge: 19 Catheter Type: multi-orifice Catheter at skin depth (cm): 15 Test Dose Result: negative and lidocaine 1.5% with epinephrine 1 to 200,000
[2022-09-03] MEDS: ePHEDrine sulfate 5 MG/ML inj 10 MG IVP ×2 (17:32→20:25)
[2022-09-03] MEDS: OXYTOCIN 30 unit/500 ML in NS 30 UNIT/500 ML BAG 300 UNIT IVPB (20:07)
[2022-09-03] MEDS: miSOPROStoL 800 MCG/4 TABLET PR (20:13)
[2022-09-03] MEDS: TRANEXAMIC ACID 100 MG/ML INJ 1000 MG IV (20:20)
--- NOTE | 2022-09-03 21:15 | W.PM.OBVAGDE ---
OB Procedure Vag Delivery Mother Details Mother Details: The patient is a 32 year-old, 4, Para 2, admitted on 09/03/22 at 40.1 Days gestation. She was induced with AROM and pregressed to complete in a little over an hour. She received her epidural shortly after AROM and experienced subsequent drops in her blood pressure that required treatment. We changed her position many times in labor for intolerance mostly related to maternal blood pressure. : 4 Para: 3 Weeks Gestation: 40.1 Admission Date: 09/03/22 Additional Details Amniotic Membrane Status: AROM Amniotic Membrane Rupture Date: 09/03/22 Amniotic Membrane Rupture Time: 16:22 Amniotic Membrane Fluid Description: Meconium Stained Analgesia/Anesthesia Type: Epidural Waterbirth: No Pitcoin: Yes Intrapartal Events: Labor Induction and Mod/Heavy Meconium Fluid Induction Method: AROM Labor Onset: 15:55 Complete: 17:31 Pushin:37 Heart: heart tones during second stage were category II. Baseline was 100-110 with accelerations. Occasional jumps in heart rate up to 170-190's usually associated with blood pressure medication administration. She had prolonged decelerations to the 70-90 as well as variable decelerations. She received multiple fluid boluses during labor and frequent position changes. Delivery Details Delivery Date: 09/03/22 Delivery Time: 20:06 Route of delivery: Gender: Female Infant Viability: Alive; Heart Rate Present Position at Delivery: OP (ROP presentation) Delivery Details: Delivered over intact perineum via vaginal delivery. Infant was placed on maternal abdomen.? Cord was clamped and cut after about 1 minute delay. Baby was brought to the warmer for poor tone and color. Nose and mouth were bulb suctioned.? weight 10lb 2oz. 1 Minute Interval Total Score: 7 5 Minute Interval Total Score: 7 Additional Details Shoulder Dystocia: No Placenta Delivery Time: 20:14 Placental Delivery Description: Spontaneous Delivery repair: Vicryl Procedure Done: Global Blood Loss: 700 Laceration: Perineal - 2nd Degree Episiotomy Description: None Blood Loss Measurement Type: QBL Bakri Used: No Sponge/Need Count Correct: Yes Cord Vessel Description: 3 Vessels, Nuchal Cord (x2) and Reduced Event Summary Status: Mother and were stable after delivery. Disposition: floor
[2022-09-04] MEDS: ACETAMINOPHEN 500 MG TABLET 1000 MG PO ×3 (00:23→12:27)
[2022-09-04 01:00] VITALS: BP 115/76; PULSE 84; RESP 18; TEMP 36.7; O2SAT 98
[2022-09-04 05:00] VITALS: BP 112/76; PULSE 72; RESP 16; TEMP 36.6; O2SAT 98
[2022-09-04 07:26] LABS: Hemoglobin* 11.3 gm/dL (12.0-16.0)
[2022-09-04 08:00] VITALS: BP 109/75; PULSE 75; RESP 18; TEMP 36.5; O2SAT 100
[2022-09-04 12:15] VITALS: BP 107/74; PULSE 88; RESP 18; TEMP 36.7; O2SAT 97
--- NOTE | 2022-09-04 13:49 | PM.OBPNVD1 ---
OB - PN:Subj Subjective Date Seen: 09/04/22 Patient comments OB post-: no complaints, pain well controlled, tolerating diet and flatus present [place] status: and doing well [place] feeding status: exclusively Narrative: The patient feels well.? The pain is well controlled with current medications.?She is sore all over and having cramping but feels well controlled with Tylenol. Not taking ibuprofen due to intolerance to it. She has no new complaints.? Urinary output is adequate and she is voiding without difficulty.? Has a good appetite, is tolerating a general diet, is passing flatus, and has not had a bowel movement.? Has scant amount of rubra lochia.? She is ambulating well.?She is and feels that it is going better now. She was struggling with latch and baby cluster feeding last night but both are improving. she is planning on staying tonight and discharging tomorrow. GENERAL APPEARANCE:? normal affect, alert, no distress? MOOD:? appropriate? CHEST:? clear to auscultation and percussion? HEART:? regular rate and rhythm? ABDOMEN:? soft, non-tender the uterine fundus is [] and is appropriate for the stage of recovery.? PERINEUM:? mild edema of the perineum, there is a [] that is healing well.? EXTREMITIES:? normal and no edema? OB - PN: Obj Exam Physical Exam: Vital signs: Temp Pulse Resp BP Pulse Ox O2 Del Method 98.0 F 88 18 107/74 97 Room Air 09/04/22 12:15 09/04/22 12:15 09/04/22 12:15 09/04/22 12:15 09/04/22 12:15 09/04/22 12:15 Narrative: GENERAL APPEARANCE:? normal affect, alert, no distress? MOOD:? appropriate? CHEST:? clear to auscultation and percussion? HEART:? regular rate and rhythm? ABDOMEN:? soft, non-tender the uterine fundus is U/2 and is appropriate for the stage of recovery.? PERINEUM:? mild edema of the perineum, there is a 2nd degree that is healing well.? EXTREMITIES:? normal and no edema? OB - PN: Obj Data Labs Labs: Laboratory Results - last 24 hr 09/03/22 09/04/22 16:15 07:21 WBC 10.73 RBC 4.11 Hgb 12.9 11.3 L Hct 37.4 MCV 91 MCH 31 MCHC 35 RDW Coeff of Mick 13.6 Plt Count 240 Neut % (Auto) 77.0 H Lymph % (Auto) 14.7 L [place] % (Auto) 7.2 Eos % (Auto) 0.2 Baso % (Auto) 0.3 Neut # (Auto) 8.30 H Lymph # (Auto) 1.60 [place] # (Auto) 0.80 Eos # (Auto) 0.02 Baso # (Auto) 0.03 Blood Type B Positive Antibody Screen NEGATIVE OB - PN: A/P Delivery Assessment and Plan (1) BMI 40.0-44.9, adult: Status: Acute (2) History of hemorrhage: Status: Acute (3) care following vaginal delivery: Status: Acute (4) Lactating mother: Status: Acute Plan day: 1 Plan: routine care Comments: Anticipate discharge home tomorrow.
[2022-09-04 16:15] VITALS: BP 120/82; PULSE 85; RESP 18; TEMP 36.6; O2SAT 99
[2022-09-04] MEDS: LANOLIN CREAM 1 APPLIC TOPICAL (18:24)
[2022-09-04 20:39] VITALS: BP 111/68; PULSE 81; RESP 18; TEMP 36.8; O2SAT 99
[2022-09-04] MEDS: DOCUSATE SODIUM 100 MG CAPSULE PO (23:29)
[2022-09-05 00:30] VITALS: BP 110/75; PULSE 72; RESP 16; TEMP 36.6; O2SAT 98
[2022-09-05 04:00] VITALS: BP 113/74; PULSE 70; RESP 18; TEMP 36.8; O2SAT 98
[2022-09-05 07:35] VITALS: BP 127/87; PULSE 90; RESP 16; TEMP 37; O2SAT 100
--- NOTE | 2022-09-05 08:22 | PM.OBDSVD1 ---
DS: Providers Provider Date Seen: 09/05/22 Date of admission: 09/03/22 14:58 Primary care physician: Shun Bar MD Admitting Clinician: Maya De La Rosa CNM Attending Physician on discharge: Maya De La Rosa CNM Date of Discharge: 09/05/22 DS: Diagnosis Discharge Diagnosis (1) Lactating mother: Status: Acute (2) care following vaginal delivery: Status: Acute (3) Depression: Status: Chronic Problem details: Per Dr. Bar's 08/23/21 clinic note. (4) Anxiety: Status: Chronic Exam Narrative: Exam Narrative: GENERAL APPEARANCE:? normal affect, alert, no distress? MOOD:? appropriate? CHEST:? clear to auscultation and percussion? HEART:? regular rate and rhythm? ABDOMEN:? soft, non-tender the uterine fundus is 2 cm Below Umbilicus, Midline and is appropriate for the stage of recovery. ? PERINEUM:? mild edema of the perineum, there is a 2nd degree that is healing well.? EXTREMITIES:? normal and no edema? Patient has no complaints? No active bleeding?? Doing well? She is requesting discharge home.? Const: Vital Signs, click to edit/add: Vital Signs - 24 hr 09/04/22 12:15 09/04/22 16:15 09/04/22 20:39 Temperature 98.0 F 97.8 F 98.2 F Pulse Rate [Pulse Oximeter] 88 85 81 Respiratory Rate 18 18 18 Blood Pressure [Le ft Arm] 107/74 120/82 111/68 Pulse Oximetry 97 99 99 Oxygen Delivery Me thod Room Air Room Air Room Air 09/05/22 00:30 09/05/22 04:00 09/05/22 07:35 Temperature 97.9 F 98.2 F 98.6 F Pulse Rate [Pulse Oximeter] 72 70 90 Respiratory Rate 16 18 16 Blood Pressure [Le ft Arm] 110/75 113/74 127/87 Pulse Oximetry 98 98 100 Oxygen Delivery Me thod Room Air Room Air Room Air Documenting provider has reviewed patient's vital signs: yes OB - DS: Summary Hospital Course Hospital Course: Patient is a 32year old, G 4 now P 3? admitted on 09/03/22 at 40 Weeks, 1?Days gestation for elective IOL.? She had an uncomplicated vaginal delivery.? She delivered a viable female infant.? She is breast feeding and reports things are well although baby is having some low blood sugars and she has started to supplement feedings because of this. the patient has done well.? She complains of being very sore everywhere but her pain is well controlled with current medications.? She has no new complaints.? Vitals have been stable. She has remained afebrile. She is voiding without difficulty. She is passing gas and has had a small bowel movement. She is ambulating and denies any dizziness. She is planning nothing for control.?Educated on the risk of closely spaced pregnancies and options for control. Encouraged her to consider some form of contraction.?Sheis concerned about anxiety and depression. She was started on Lexapro at the end of and is currently taking 10mg. She states that in the past she was taking 20mg and felt that this was a good dose for her. She would like to increase to dose now that she is . She would like to increase it to 15mg Qday. We can then consider increasing it to 20mg at a future visit.? Peripartum Data delivery method: Vaginal Laceration description: Perineal - 2nd Degree Episiotomy description: None complications: none [place] Infant Gender: Female Infant Discharge Plan: Home Status at Discharge Functional status at discharge: independent ambulation Overall status at discharge: patient is progressing back to baseline Time Spent with Patient Time attestation: Total time spent providing and/or coordinating discharge services: Discharge Plan Discharge Disposition: Home, Self-Care Date of Admission: 09/03/22 14:58 Attending Provider on Discharge: Maya De La Rosa Primary Care Provider: Shun Bar Condition: Stable Anticipated Discharge Date/Time: 09/05/22 17:00 Discharge Medications: New docusate sodium 100 mg Capsule 100 mg PO DAILY Qty: 60 0RF Rx Instructions: Take 1-2 tablets daily as needed for constipation. Continued prenat.vits,bacilio,[id number] Tablet 1 tab PO QDAY cholecalciferol (vitamin D3) 50 mcg (2,000 unit) tablet 4,000 unit PO QDAY Changed escitalopram oxalate [Lexapro] 10 mg tablet 15 mg PO QDAY Qty: 30 1RF Discontinued pyridoxine (vitamin B6) 25 mg tablet 25 mg PO ONCE folic acid 1 mg tablet 1 mg PO QDAY Discharge Orders: Discharge Order (Routine); Ordered 09/05/22 Ordered By: Maya De La Rosa Additional Instructions: Discharge instructions were reviewed with the patient including signs and symptoms of infection and home going medications.? Lifting Restrictions: 20 pounds for 6? weeks? ?? Do not drive while taking narcotic pain meds.? Off Work or School for 6 weeks.? ?? Symptoms to report to doctor:? -Bleeding that saturates more than one pad per hour? -Passing clots larger than the size of a golf ball? -Pain not relieved by prescribed medication? -Fever above 100.4 degrees Fahrenheit? -A foul vaginal odor? -Difficulty in emotions, mood and functions? -Thoughts of hurting yourself and/or ? -Painful, reddened area in your breast? -Any drainage, redness or tenderness in your IV/epidural site? -Severe headache that doesn't improve after taking medications? -Changes in vision, including temporary loss of vision, blurred vision, and/or light sensitivity? -Upper abdominal pain (usually under ribs on the right side)? -Decrease in urination or painful, frequent urinating? -Chest pain? -Shortness of breath? -Tenderness or pain with redness and/swelling in the calf(s) of your leg? ?? Follow Up in clinic in 2 and 6 weeks.? ?? consultation services are available to all mothers and babies for the first year after delivery.? To make an appointment, please call [phone].? Activity Level: Activity as Tolerated Discharge Diet: Regular Follow Up Appointments: [facility] [Provider Group] Forms: [facility] Info Instructions
[2022-09-05] MEDS: DOCUSATE SODIUM 100 MG CAPSULE PO (09:42)
[2022-09-05] MEDS: ACETAMINOPHEN 500 MG TABLET 1000 MG PO ×2 (10:05→17:05)
[2022-09-05 17:00] VITALS: BP 119/82; PULSE 90; RESP 16; TEMP 36.9; O2SAT 97
== END 2022-09-05 18:40 | disposition home or self-care (01) | DRG 560 ==
PROVIDERS: Admitting Provider Advanced Practice Midwife; PCP Family Medicine; Visit Provider Advanced Practice Midwife
DX: O36.63X0 Maternal care for excessive fetal growth, third trimester, not applicable or unspecified (principal); O77.0 Labor and delivery complicated by meconium in amniotic fluid; O31.21 Continuing pregnancy after intrauterine death of one fetus or more, first trimester; O70.1 Second degree perineal laceration during delivery; O76 Abnormality in fetal heart rate and rhythm complicating labor and delivery; O99.344 Other mental disorders complicating childbirth; F32.A Depression, unspecified; F41.9 Anxiety disorder, unspecified; Z3A.40 40 weeks gestation of pregnancy; Z37.0 Single live birth
CPT/HCPCS: 01967; 36415; 85018; 85025; 86850; 86900; 86901; A9270; J2370; J2795; J3010; J7120

== ENCOUNTER 2022-11-23 13:52 | Outpatient (CLI) | payer BC, SELFPAY | END 2022-11-23 13:53 | disposition home or self-care (01) | PROVIDERS: PCP Family Medicine; Visit Provider Registered Nurse | DX: Z01.419 Encounter for gynecological examination (general) (routine) without abnormal findings (principal); Z87.19 Personal history of other diseases of the digestive system | CPT/HCPCS: 84450; 84460 ==

== ENCOUNTER 2023-09-08 16:19 | Outpatient (CLI) | payer BC, SELFPAY ==
--- OUTSIDE RECORDS SUMMARY | 2023-09-08 16:26 | XMS_ITS | Clinical Summary ---
Author Organization [facility] Address [place], [place] [address] Care Team Providers Care Board Writer Name Role Phone Pcp, No Primary Care Provider Unavailabl e Allergies Active Allergy Reactions Criticality Noted Date Comments Ibuprofen Nausea And Vomiting 07/30/2014 Medications Medication Sig Dispensed Refills Start Date End Date Status VIT W-CA,FE,FA,<1 MG, ( VITAMIN ORAL) Take 1 Tab by mouth once daily. Active pediatric multivit comb no.42 (CHILD'S GUMMY VITAMIN-MINERAL) chew Take 1 tablet by mouth once daily. Active Active Problems Problem Noted Date Diagnosed Date Supervision of normal first 07/29/2014 Obesity (BMI 30-39.9) 07/29/2014 (normal spontaneous vaginal delivery) 07/29 Second degree perineal laceration during deliver y 07/29/2014 Social History Tobacco Use Types Packs/Day Years Used Date Smoking Tobacco: Former Smokeless Tobacco: Never Alcohol Use Standard Drinks/Week Comments No 0 (1 standard drink = 0.6 oz pur e alcohol) Sex and Gender Information Value Date Recorded Sex Assigned at Not on file Gender Identity Not on file Sexual Orientation Not on file Obstetrics History Para Term AB IAB SAB Ectopic Multiple Livin g Live Births 1 1 1 1 1 Date Outcome GA Total Labor Labor/2nd/3rd Weight Sex Type Anes PTL Maria G A1 A5 Name Clin 015 Term 37w 3d 3.18 kg (7 lb) M Vag Living 9 9 SHOVE INESSA ARCHIBALD (ALFREDO ICA) Delivery Location:[facility] Last Filed Vital Signs Vital Sign Reading Time Taken Comments Blood Pressure 110/64 09/30/2015 4:20 PM CDT Pulse 116 09/30/2015 4:20 PM CDT Temperature 37.2 ??C (98.9 ??F) 09/30/2015 4:20 PM CD T Respiratory Rate 16 07/31/2014 9:00 AM CDT Oxygen Saturation 98% 09/30/2015 4:20 PM CDT Inhaled Oxygen Concentration - - Weight 112 kg (247 lb) 09/30/2015 4:20 PM CDT Height 168.9 cm (5' 6.5) 04/15/2015 4:11 PM [employer] Body Mass Index 39.27 04/15/2015 4:11 PM [employer] Plan of Treatment Health Maintenance Due Date Last Done Comments Tdap 2001 Depression screening for age 12+ 2002 HIV for age 15-65 2005 Hepatitis C screening for ag e 18-79 2008 Tetanus booster 2010 BMI (ht and wt on same day) for age 18+ 04/15/2016 04/15/2015 COVID-19 vaccine series (2022- season) 2022 Influenza for age 9-49 11/12/2023 Pap test for age 21-65 11/23/2025 , 11/23/2022, 06/05/2018 Pneumococcal series for age 6-64 Aged Out No longer eligible b ased on patient's age to complete this topic Procedures Procedure Name Priority Date/Time Associated Diagnosis Comments HPV THIN PREP Routine 11/23/2022 2:00 PM CDT from Last 3 Months or Most Recently Relevant to Health Maintenance Results * HPV HIGH RISK (11/23/2022 2:00 PM CDT) TYPE 16 Negative Negative 11/28/2022 1:53 PM CDT [facility] TYPE 18 Negative Negative 11/28/2022 1:53 PM CDT [facility] OTHER HIGH RISK TYPES Negative Negative 11/28/2022 1:53 PM CDT [facility] Other (Cervical) 11/23/2022 2:00 PM CDT 11/24/2022 5:23 PM CDT Narrative [facility] - 11/28/2022 1:53 PM CDT HPV types 16, 18, 31, 33, 35, 39, 45, 51, 52, 56, 58, 59, 66 and 68 DNA were undetectable or below the pre-set threshold. Methodology: Lynne Yg 4800 HPV Test Kiesha Faust NP [facility] [address] [place] [address], from Last 3 Months or Most Recently Relevant to Health Maintenance Advance Directives * Full Code (Latest Code Status on File) Date Activated Date Inactivated Comments 07/29/2014 11:20 PM 07/31/2014 2:18 PM * Full Code Date Activated Date Inactivated Comments 07/29/2014 7:31 AM 07/29/2014 11:20 PM * Full Code Date Activated Date Inactivated Comments 07/29/2014 7:30 AM 07/29/2014 7:31 AM * Full Code Date Activated Date Inactivated Comments 07/29/2014 7:11 AM 07/29/2014 7:25 AM * Full Code Date Activated Date Inactivated Comments 07/29/2014 6:25 AM 07/29/2014 7:11 AM Care Teams Board Writer Relationship Specialty Start Date End Date Pcp, No . PCP - General 07/29/14
== END 2023-09-08 16:20 | disposition home or self-care (01) ==
PROVIDERS: PCP Family Medicine; Visit Provider Registered Nurse
DX: R10.9 Unspecified abdominal pain (principal); R68.82 Decreased libido; F32.0 Major depressive disorder, single episode, mild; K76.0 Fatty (change of) liver, not elsewhere classified
CPT/HCPCS: 80053; 80061; 83690; 86140

== ENCOUNTER 2024-04-19 15:46 | Outpatient (CLI) | payer BC, SELFPAY | END 2024-04-19 15:47 | disposition home or self-care (01) | LOC: NFLDREF 15:47 | PROVIDERS: PCP Family Medicine; Visit Provider Registered Nurse | DX: F32.0 Major depressive disorder, single episode, mild (principal); F41.9 Anxiety disorder, unspecified | CPT/HCPCS: 84443 ==

== ENCOUNTER 2024-05-23 10:02 | Outpatient (CLI) | payer BC, SELFPAY | END 2024-05-23 10:03 | disposition home or self-care (01) | PROVIDERS: PCP Family Medicine; Visit Provider Obstetrics & Gynecology | DX: N92.1 Excessive and frequent menstruation with irregular cycle (principal); Z13.220 Encounter for screening for lipoid disorders; Z13.1 Encounter for screening for diabetes mellitus | CPT/HCPCS: 80061; 82670; 82947; 83001; 83498; 83525; 84270; 84402; 84403 ==

== ENCOUNTER 2025-01-07 12:06 | Outpatient (CLI) | payer BC, SELFPAY | END 2025-01-07 12:07 | disposition home or self-care (01) | PROVIDERS: PCP Family Medicine; Visit Provider Family Medicine | DX: L50.9 Urticaria, unspecified (principal) | CPT/HCPCS: 80053; 82239 ==